=== PATIENT | male | born 1995 | race Caucasian/White ===

== ENCOUNTER 2018-01-08 21:07 | Inpatient (IN) | payer OTHER ==
[~2018-01-08] VITALS: Ht 208.3 cm; Wt 122.5 kg
[2018-01-08 22:24] LABS: ALBUMIN 5.6 g/dL (3.2-4.8)
[2018-01-08 22:25] LABS: CHLORIDE 97 mEq/L (99-109); POTASSIUM 4.3 mEq/L (3.7-5.4); SODIUM 138 mEq/L (136-147)
[2018-01-08 22:26] LABS: HEMATOCRIT 50.1 % (38.0-50.0); HEMOGLOBIN 17.7 G/DL (12.5-16.6); MCH 29.3 PG (29.0-34.0); MCHC 35.3 G/DL (30.0-36.0); MCV 82.8 FL (86-99); PLATELET COUNT 219 K/uL (156-360); RBC DIS.WIDTH-CV 12.2 % (11.8-14.6); RBC DIS.WIDTH-SD 37.1 % (39-53); RED BLOOD COUNT 6.05 M/uL (4.00-5.50); WHITE BLOOD COUNT 9.3 K/uL (4.1-10.2)
[2018-01-08 22:27] LABS: GLUCOSE 122 mg/dL (70-99); TOTAL PROTEIN 9.2 g/dL (6.4-8.3)
[2018-01-08 22:29] LABS: TOTAL BILIRUBIN 1.1 mg/dL (0.0-1.0)
[2018-01-08 22:30] LABS: ALKALINE PHOSPHATASE 107 IU/L (3-129)
[2018-01-08 22:31] LABS: CREATININE 2.9 mg/dL (0.6-1.3)
[2018-01-08 22:32] LABS: AST (GOT) 43 IU/L (2-34); UREA NITROGEN (BUN) 33 mg/dL (9-23)
[2018-01-08 22:33] LABS: ALT (GPT) 16 IU/L (3-49)
[2018-01-08 22:34] LABS: CREATINE KINASE 634 IU/L (1-294); GFR ESTIMATE (CALCULATED) 30 mL/min/ (58.99-99999); LIPASE 11 U/L (1.0-51.0); TOTAL CK 634 IU/L (1-294)
[2018-01-08 22:37] LABS: TROP-I INTERPRETATION NEGATIVE; TROPONIN-I 0.02 ng/mL (0.0-0.30)
[2018-01-08 22:45] LABS: CK-MB 4.6 ng/mL (0.0-4.9); CKMB RELATIVE INDEX 0.7 (0.0-3.9)
[2018-01-09 00:04] LABS: APPEARANCE CLOUDY ((CLEAR)); BILIRUBIN NEGATIVE; BLOOD SMALL; COLOR YELLOW ((YELLOW)); GLUCOSE (STRIP) 50; KETONES 5; LEUKOCYTES NEGATIVE; NITRITE NEGATIVE; PROTEIN (STRIP) 100; SPECIFIC GRAVITY 1.021 (1.000-1.030)
[2018-01-09 00:51] LABS: EPITHELIAL CELLS RARE /HPF; RED BLOOD CELLS 0-5 /HPF (0-5); WHITE BLOOD CELLS NONE SEEN /HPF (0-5)
[2018-01-09 00:52] LABS: BACTERIA 2+ /HPF; CALCIUM OXALATE CRYSTALS 3+ /HPF; HYALINE CASTS 0-5 /LPF; MUCUS NONE SEEN /LPF; UCUL ADDED? YES
[2018-01-09 00:56] LABS: CREATINE KINASE 693 IU/L (1-294); TOTAL CK 693 IU/L (1-294)
[2018-01-09 01:02] LABS: CKMB RELATIVE INDEX 0.7 (0.0-3.9)
[2018-01-09 03:23] LABS: CHLORIDE 103 mEq/L (99-109); POTASSIUM 4.2 mEq/L (3.7-5.4); SODIUM 137 mEq/L (136-147)
[2018-01-09 03:25] LABS: GLUCOSE 123 mg/dL (70-99)
[2018-01-09 03:30] LABS: UREA NITROGEN (BUN) 27 mg/dL (9-23)
[2018-01-09 03:31] LABS: URIC ACID 11.5 mg/dL (3.1-9.2)
[2018-01-09 03:32] LABS: CREATININE 2.3 mg/dL (0.6-1.3); GFR ESTIMATE (CALCULATED) 39 mL/min/ (58.99-99999)
[2018-01-09 04:19] VITALS: BP 137/65
[2018-01-09 07:26] VITALS: BP 110/50; BP 441/50
[2018-01-09 08:00] LABS: THYROTROPIN (TSH) 1.9 MIU/L (0.4-5.5)
[2018-01-09 08:10] LABS: BASOPHIL (%) 0.4 % (0-1); CHLORIDE 105 mEq/L (99-109); EOSINOPHIL (%) 1.1 % (0-5); EOSINOPHIL COUNT 0.1 K/uL (0-0.3); HEMATOCRIT 41.2 % (38.0-50.0); HEMOGLOBIN 14.5 G/DL (12.5-16.6); IMMATURE GRANULOCYTE (%) 0.1 % (0.0-0.7); LYMPHOCYTE (%) 30.9 % (15-42); LYMPHOCYTE COUNT 2.2 K/uL (1.0-2.8); MCH 29.3 PG (29.0-34.0); MCHC 35.2 G/DL (30.0-36.0); MCV 83.2 FL (86-99); MONOCYTE (%) 11.6 % (3-12); MONOCYTE COUNT 0.8 K/uL (0-0.8); NEUTROPHIL (%) 55.9 % (45-76); PLATELET COUNT 171 K/uL (156-360); POTASSIUM 3.5 mEq/L (3.7-5.4); RBC DIS.WIDTH-CV 12.7 % (11.8-14.6); RBC DIS.WIDTH-SD 38.3 % (39-53); RED BLOOD COUNT 4.95 M/uL (4.00-5.50); SODIUM 139 mEq/L (136-147); WHITE BLOOD COUNT 7.1 K/uL (4.1-10.2)
[2018-01-09 08:13] LABS: GLUCOSE 114 mg/dL (70-99)
[2018-01-09 08:15] LABS: TOTAL BILIRUBIN 0.6 mg/dL (0.0-1.0); TOTAL PROTEIN 6.2 g/dL (6.4-8.3)
[2018-01-09 08:16] LABS: PHOSPHORUS 4.9 mg/dL (2.5-4.9)
[2018-01-09 08:18] LABS: AST (GOT) 52 IU/L (2-34); UREA NITROGEN (BUN) 26 mg/dL (9-23)
[2018-01-09 08:20] LABS: ALT (GPT) 10 IU/L (3-49); URIC ACID 8.9 mg/dL (3.1-9.2)
[2018-01-09 08:23] LABS: ALKALINE PHOSPHATASE 74 IU/L (3-129); CREATINE KINASE 1585 IU/L (1-294); CREATININE 1.7 mg/dL (0.6-1.3); GFR ESTIMATE (CALCULATED) 55 mL/min/ (58.99-99999)
[2018-01-09 09:02] LABS: TROP-I INTERPRETATION NEGATIVE; TROPONIN-I 0.02 ng/mL (0.0-0.30)
[2018-01-09 11:14] VITALS: BP 133/60
[2018-01-09] MEDS ORDERED: TYLENOL REGULA325 MG PO (13:35)
[2018-01-09 15:20] LABS: BENZODIAZEPINES, URINE SCREEN Negative (200 ng/mL); UR CREATININE CONCENTRATION 124.9 MG/DL
[2018-01-09 15:44] VITALS: BP 129/58
[2018-01-09 16:10] LABS: CK-MB 9.6 ng/mL (0.0-4.9)
[2018-01-09 16:13] LABS: CHLORIDE 103 MEQ/L (99-109); CKMB RELATIVE INDEX 0.7 (0.0-3.9); CREATINE KINASE 1358 IU/L (1-294); CREATININE 1.4 MG/DL (0.6-1.3); GFR ESTIMATE (CALCULATED) > 59 mL/min/ (58.99-99999); GLUCOSE 106 mg/dL (70-99); POTASSIUM 3.8 MEQ/L (3.7-5.4); SODIUM 139 MEQ/L (136-147); TOTAL CK 1358 IU/L (1-294); UREA NITROGEN (BUN) 23 mg/dL (9-23)
== END 2018-01-09 18:25 | disposition home or self-care (01) | DRG 683 ==
LOC: EDBD 21:07 → EME 21:07 → EDOF 01-09 02:50 → 3EAST 01-09 03:50
PROVIDERS: Emergency Medicine; Hospitalist; Internal Medicine
DX: N17.9 Acute kidney failure, unspecified (principal); E86.0 Dehydration; I48.0 Paroxysmal atrial fibrillation; M62.82 Rhabdomyolysis; E87.6 Hypokalemia; E83.52 Hypercalcemia; Z83.3 Family history of diabetes mellitus
CPT/HCPCS: 76770; 80048; 80048 91; 80053; 80069; 80306 90; 81003; 82330; 82436; 82550; 82550 91; 82553; 82570; 83690; 84100; 84133; 84156; 84300; 84443; 84484; 84550; 85025; 85027; 87086; 93005; 99281; 99285; J1644; J7030; J7040